=== PATIENT | female | born 1980 | race Caucasian/White ===

== ENCOUNTER 2017-04-14 19:23 | Emergency (ER) | payer MEDICAID ==
[2017-04-14] MEDS ORDERED: ACETAMINOPHEN 325 MG TABLET PO ONE (21:08)
--- NOTE | 2017-04-14 21:09 | ER Document Report ---
HPI - HPI Pain Level: 3 Context: Patient is a 36-year-old female presents emergency department after a fall on Saturday. Patient states that she was walking across her deck when that would give out and she fell through. She states that she. A lot of her weight on her right shoulder. States it was not bothering her that much over the past couple of days when she was at [employer] today and was sliding over to boost when she had pain in her right shoulder. She states that she did not take anything prior to arrival has not taken anything for pain all weekend. She does admit to some pain in the lateral aspect of her right knee but is been able to walk without any difficulty. States it does hurt with certain positions but otherwise denies any significant swelling. - EENT EENT: DENIES: Sore Throat, Ear Pain, Eye problems - NEURO Neurology: DENIES: Headache - CARDIOVASCULAR Cardiovascular: DENIES: Chest pain - RESPIRATORY Respiratory: DENIES: Trouble Breathing, Coughing - GASTROINTESTINAL Gastrointestinal: DENIES: Abdominal Pain, Black / Bloody Stools - URINARY Urinary: DENIES: Dysuria, Urgency, Frequency - MUSCULOSKELETAL Musculoskeletal: REPORTS: Extremity pain - r shoulder, r knee, r ankle Past Medical History - Social History Smoking Status: Never Smoker Family History: Reviewed & Not Pertinent Patient has suicidal ideation: No Patient has homicidal ideation: No Renal/ Medical History: Denies: Hx Peritoneal Dialysis Vertical Provider Document - CONSTITUTIONAL Agree With Documented VS: Yes Notes: PHYSICAL EXAMINATION: GENERAL: Well-appearing, well-nourished and in no acute distress. HEAD: Atraumatic, normocephalic. LUNGS: Breath sounds clear to auscultation bilaterally and equal. No wheezes rales or rhonchi. HEART: Regular rate and rhythm without murmurs. Pulses intact all throughout. Musculoskeletal: Tenderness along the right lateral aspect of the knee without any significant effusion, edema or deformity. Right shoulder with full range of motion and nontender to palpation. Mild tenderness palpation of the right trapezius. Normal range of motion, no pitting or edema. No cyanosis. Hip non tender, stable. NEUROLOGICAL: Cranial nerves grossly intact. Normal speech, normal gait. Normal sensory, motor, and reflex exams. PSYCH: Normal mood, normal affect. SKIN: Warm, No active bleeding - INFECTION CONTROL TRAVEL OUTSIDE OF THE [place] IN LAST 30 DAYS: No - RESPIRATORY O2 Sat by Pulse Oximetry: 98 Course - Re-evaluation Re-evalutation: 04/15/17 2200 Patient is a 36-year-old female is hemodynamically stable, no acute distress.No evidence of a septic joint, gout flare, dislocation, or fracture on exam and imaging. Vitals wnl. At this time, I do not see an indication for labs or further imaging. Will discharge with conservative measures, return precautions, and follow-up recommendations. Patient is declining crutches at this time. - Vital Signs Vital signs: Temp Pulse Resp BP Pulse Ox 98.6 F 79 18 109/76 98 04/14/17 20:07 04/14/17 20:07 04/14/17 20:07 04/14/17 20:07 04/14/17 20:07 - Diagnostic Test Radiology reviewed: Image reviewed, Reports reviewed Discharge - Discharge Clinical Impression: Fall Qualifiers: Encounter type: initial encounter Qualified Code(s): W19.XXXA - Unspecified fall, initial encounter Condition: Good Disposition: HOME, SELF-CARE Instructions: Acetaminophen, Contusion (OM), Use of Btso-Wcr-Vhkevos Ibuprofen (OM), Knee Exercise Program (OM), Exercise Program for the Shoulder ([facility]) Referrals: RAÚL ARSHAD DO [ACTIVE STAFF] - Follow up in 1 week
--- NOTE | 2017-04-14 21:59 | RADIOLOGY REPORT (SQ) ---
EXAM DESCRIPTION: SHOULDER RIGHT 2 OR MORE VIEWS; KNEE RIGHT 4 VIEWS COMPLETED DATE/TIME: 04/14/2017 9:44 pm REASON FOR STUDY: fall COMPARISON: None. FINDINGS: Three views right shoulder: Normal. No bone, joint or soft tissue abnormality. Clear ri ght lung. Four views right knee: No bone, joint or soft tissue abnormality. TECHNICAL DOCUMENTATION: JOB ID: [id number]
[2017-04-14 22:37] VITALS: BP 106/71
== END 2017-04-14 22:33 | disposition home or self-care (01) ==
LOC: ER 19:23
DX: M25.561 Pain in right knee (principal); M25.511 Pain in right shoulder; M25.571 Pain in right ankle and joints of right foot; W13.3XXA Fall through floor, initial encounter
CPT/HCPCS: 99283

== ENCOUNTER 2017-07-09 17:29 | Emergency (ER) | payer MEDICAID ==
[2017-07-09 17:33] VITALS: BP 117/70
--- NOTE | 2017-07-09 17:53 | ER Document Report ---
HPI - HPI Patient complains to provider of: test positive Onset: This morning Pain Level: Denies Context: Patient states that she took a home test that was positive at home. Patient does not feel that the results are accurate and would like to know if she is or not. Patient denies any vaginal bleeding or discharge. Patient denies any urinary symptoms. Patient denies any nausea or vomiting. Patient denies any abdominal pain or back pain. Associated Symptoms: None Exacerbated by: Denies Relieved by: Denies Similar symptoms previously: Yes Recently seen / treated by doctor: No - ROS ROS below otherwise negative: Yes Systems Reviewed and Negative: Yes All other systems reviewed and negative - CONSTITUTIONAL Constitutional: DENIES: Fever, Chills - EENT EENT: DENIES: Sore Throat - CARDIOVASCULAR Cardiovascular: DENIES: Chest pain - RESPIRATORY Respiratory: DENIES: Trouble Breathing, Coughing - GASTROINTESTINAL Gastrointestinal: DENIES: Abdominal Pain, Nausea, Patient vomiting - URINARY Urinary: DENIES: Dysuria - MUSCULOSKELETAL Musculoskeletal: DENIES: Extremity pain, Back Pain - DERM Skin Color: Normal Past Medical History - General Information source: Patient - Social History Smoking Status: Never Smoker Frequency of alcohol use: None Drug Abuse: None 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 IN LAST 30 DAYS: No - HEENT HEENT: Atraumatic, Normocephalic - NECK Neck: Normal Inspection - RESPIRATORY Respiratory: Breath Sounds Normal, No Respiratory Distress - CARDIOVASCULAR Cardiovascular: Regular Rate, Regular Rhythm - GI/ABDOMEN Gastrointestinal: Abdomen Soft, Abdomen Non-Tender, No Organomegaly - BACK Back: Normal Inspection. negative: CVA Tenderness-Right, CVA Tenderness-Left - MUSCULOSKELETAL/EXTREMETIES Musculoskeletal/Extremeties: MAEW - NEURO Level of Consciousness: Awake, Alert, Appropriate Motor/Sensory: No Motor Deficit - DERM Integumentary: Warm, Dry, No Rash Course - Re-evaluation Re-evalutation: 07/09/17 17:52 Explained to patient that the emergency department is not the place for repeat testing to confirm outpatient positive results. - Vital Signs Vital signs: Temp Pulse Resp BP Pulse Ox 98.5 F 68 15 117/70 98 07/09/17 17:32 07/09/17 17:32 07/09/17 17:32 07/09/17 17:32 07/09/17 17:32 - Laboratory Laboratory results interpreted by me: 07/09/17 18:32 Labs- Entire Visit 07/09/17 17:52 Serum HCG, Qual POSITIVE H Discharge - Discharge Clinical Impression: test positive Condition: Stable Disposition: HOME, SELF-CARE Instructions: ([facility]) Additional Instructions: Return immediately for any new or worsening symptoms Followup with your primary care provider, call tomorrow to make a followup appointment Follow-up follow-up with an SCHEME TECHNICIAN to establish care [facility] [NO LOCAL MD] - Follow up as needed [facility] [Provider Group] - Follow up as needed
== END 2017-07-09 18:39 | disposition home or self-care (01) ==
LOC: ER 17:29
DX: Z32.01 Encounter for pregnancy test, result positive (principal)
CPT/HCPCS: 36415; 84703; 99284

== ENCOUNTER → 2017-07-17 | Outpatient (CLI) | payer SELFPAY ==
--- NOTE | 2017-07-17 15:40 | RADIOLOGY REPORT (SQ) ---
EXAM DESCRIPTION: U/S [id number] TRNABD 1GES W/ODOP COMPLETED DATE/TIME: 07/17/2017 1:43 pm REASON FOR STUDY: ENCTR FOR SUPERVISION OF OTHER NORMAL , 1ST TRIMESTER (Z34.81) Z34.81 EN COUNTER FOR SUPRVSN OF NORMAL , FIRST TRIM COMPARISON: None. TECHNIQUE: Transvaginal and transabdominal static and realtime grayscale images acquired of the pelv is. Additional selected spectral and color Doppler images recorded. All images stored on PACs. bHCG: Not available. CLINICAL DATES: LIMITATIONS: None. FINDINGS: FETUS: Living intrauterine . ULTRASOUND EGA: 5 weeks 5 days ULTRASOUND MOISÉS: 03/14/2018 CRL: 2.2 mm FHR: 182 beats per minute. SUBCHORIONIC BLEED: No. SIZE OF BLEED: Not applicable. UTERUS: No masses. No anomalies. CERVICAL LENGTH: 3.5 cm. Closed. RIGHT ADNEXA: Normal ovary with normal vascular flow. No adnexal free fluid. No adnexal masses. LEFT ADNEXA: Normal ovary with normal vascular flow. No adnexal free fluid. No adnexal masses. FREE FLUID: None. OTHER: No other significant finding. IMPRESSION: LIVING INTRAUTERINE . EGA 5 weeks 5 days. Trimester of : First - 0 to 13 weeks. TECHNICAL DOCUMENTATION: JOB ID: [id number] [employer]- All Rights Reserved Reading location - IP/workstation name: [email or web address]
== END ==
LOC: RAD 12:21
PROVIDERS: ATTEND Nurse Practitioner Women's Health
DX: Z34.81 Encounter for supervision of other normal pregnancy, first trimester (principal)
CPT/HCPCS: 76801

== ENCOUNTER 2017-07-24 21:47 | Emergency (ER) | payer MEDICAID ==
[2017-07-25 01:33] LABS: APPEARANCE,URINE CLEAR; BILIRUBIN,URINE NEGATIVE (NEGATIVE); COLOR,URINE YELLOW; GLUCOSE, URINE NEGATIVE (NEGATIVE); KETONES,URINE TRACE mg/dL (NEGATIVE); LEUKOCYTE ESTERASE,URINE NEGATIVE (NEGATIVE); NITRITE,URINE NEGATIVE (NEGATIVE); PROTEIN,URINE 30 mg/dL (NEGATIVE); UROBILINOGEN,URINE NEGATIVE mg/dL (<2.0)
[2017-07-25 02:07] LABS: HEMOGLOBIN 12.4 g/dL (12.0-15.5); MEAN CORPUSCULAR HEMOGLOBIN 31.1 pg (27.0-33.4); MEAN CORPUSCULAR HGB CONC 34.5 g/dL (32.0-36.0); MEAN CORPUSCULAR VOLUME 90 fl (80-97); PLATELET COUNT 418 10^3/uL (150-450); WHITE BLOOD COUNT 10.6 10^3/uL (4.0-10.5)
[2017-07-25 02:22] LABS: ANION GAP 14 (5-19); BLOOD UREA NITROGEN 7 mg/dL (7-20); CALCIUM 9.6 mg/dL (8.4-10.2); CARBON DIOXIDE 23 mmol/L (22-30); CHLORIDE 106 mmol/L (98-107); GLUCOSE 97 mg/dL (75-110); POTASSIUM 4.1 mmol/L (3.6-5.0); SODIUM 143.2 mmol/L (137-145)
--- NOTE | 2017-07-25 03:03 | RADIOLOGY REPORT (SQ) ---
EXAM DESCRIPTION: Complete first trimester obstetrical ultrasound. CLINICAL HISTORY: 37 years Female, bleeding +preg LMP 06/07/2017 COMPARISON: None. TECHNIQUE: Complete first trimester obstetrical ultrasound with transvaginal imaging. Limited color and spectral Doppler imaging ovaries. FINDINGS: The cervix measures 3.2 cm and is closed. Multiple nabothian cysts. The uterus measures 10.6 x 6.1 x 6.0 cm. Within the endometrial canal there is a single gestational sac. pole identified measuring 0.86 cm compatible with an estimated gestational age of 6 weeks, 6 days. heart rate of 136 beats for minute. Yolk sac identified and within normal limits. No free pelvic fluid. The left ovary measures 2.5 x 3.2 x 2.9 cm. The right ovary is not identified. Limited color and spectral Doppler images demonstrate flow within the left ovary. IMPRESSION: Single live intrauterine with estimated gestational age of 6 weeks, 6 days. heart rate of 136 bpm. Continued obstetrical follow-up recommended.
--- NOTE | 2017-07-25 03:19 | ER Document Report ---
ED General - General Chief Complaint: Urinary Problem Stated Complaint: BLOOD IN URINE Time Seen by Provider: 07/25/17 01:14 TRAVEL OUTSIDE OF THE U.S. IN LAST 30 DAYS: No - HPI Patient complains to provider of: Hematuria abdominal pain Notes: Patient coming in stating she is having blood in urine also having diffuse abdominal pain patient states that she is currently approximately 5 weeks she is a . Patient denies any complications or previous pregnancies. Patient denies any abdominal trauma. Resting company upon my evaluation states nausea no vomiting no diarrhea. Patient denies vaginal bleeding - Related Data Allergies/Adverse Reactions: No Known Allergies Allergy (Unverified 04/14/17 19:27) Past Medical History - Social History Smoking Status: Unknown if Ever Smoked Family History: Reviewed & Not Pertinent Patient has suicidal ideation: No Patient has homicidal ideation: No Renal/ Medical History: Denies: Hx Peritoneal Dialysis Review of Systems - Review of Systems Constitutional: No symptoms reported EENT: No symptoms reported Cardiovascular: No symptoms reported Respiratory: No symptoms reported Gastrointestinal: Abdominal pain Genitourinary: Hematuria Female Genitourinary: No symptoms reported Musculoskeletal: No symptoms reported Skin: No symptoms reported Hematologic/Lymphatic: No symptoms reported Neurological/Psychological: No symptoms reported -: Yes All other systems reviewed and negative Physical Exam - Vital signs Vitals: Temp Pulse Resp BP Pulse Ox 98 F 93 18 117/77 98 07/24/17 21:54 07/24/17 21:54 07/24/17 21:54 07/24/17 21:54 07/24/17 21:54 Interpretation: Normal - General General appearance: Appears well, Alert - HEENT Head: Normocephalic, Atraumatic Eyes: Normal Pupils: PERRL - Respiratory Respiratory status: No respiratory distress Chest status: Nontender Breath sounds: Normal Chest palpation: Normal - Cardiovascular Rhythm: Regular Heart sounds: Normal auscultation Murmur: No - Abdominal Inspection: Normal Distension: No distension Bowel sounds: Normal Tenderness: Nontender Organomegaly: No organomegaly - Back Back: Normal, Nontender - Extremities General upper extremity: Normal inspection, Nontender, Normal color, Normal ROM , Normal temperature General lower extremity: Normal inspection, Nontender, Normal color, Normal ROM , Normal temperature, Normal weight bearing. No: Chris's sign - Neurological Neuro grossly intact: Yes Cognition: Normal Orientation: AAOx4 Sammi Coma Scale Eye Opening: Spontaneous Sammi Coma Scale Verbal: Oriented [place] Coma Scale Motor: Obeys Commands Sammi Coma Scale Total: 15 Speech: Normal Motor strength normal: LUE, RUE, LLE, RLE Sensory: Normal - Psychological Associated symptoms: Normal affect, Normal mood - Skin Skin Temperature: Warm Skin Moisture: Dry Skin Color: Normal Course - Re-evaluation Re-evalutation: 07/25/17 03:19 The patient presents with abdominal pain without signs of peritonitis or other life-threatening or serious etiology. The patient appears stable for discharge and has been instructed to return immediately if the symptoms worsen in any way , or in 8-12hr if not improved for re-evaluation. The patient has been instructed to return if the symptoms worsen or change in any way. Patient does not look to be a candidate for RhoGam concerned that more likely patient probably is having a little bit of vaginal spotting however patient is very adamant refuses pelvic examination this time ultrasound does not show any significant pathology will discharge patient home follow-up with [employer] or health department. - Vital Signs Vital signs: Temp Pulse Resp BP Pulse Ox 98 F 93 18 117/77 98 07/24/17 21:54 07/24/17 21:54 07/24/17 21:54 07/24/17 21:54 07/24/17 21:54 - Laboratory Result Diagrams: 07/25/17 01:57 07/25/17 01:57 Laboratory results interpreted by me: 07/25/17 07/25/17 07/25/17 01:15 01:57 01:57 WBC 10.6 H Beta HCG, Quant 51491.00 H Urine Protein 30 H Urine Ketones TRACE H Urine Blood MODERATE H Urine HCG, Qual POSITIVE H Discharge - Discharge Clinical Impression: Abdominal pain during Qualifiers: Trimester: first trimester Qualified Code(s): O26.891 - Other specified related conditions, first trimester; R10.9 - Unspecified abdominal pain; R10.9 - Unspecified abdominal pain Hematuria Qualifiers: Hematuria type: unspecified type Qualified Code(s): R31.9 - Hematuria, unspecified Condition: Good Instructions: Pelvic Pain in ([facility]), ([facility]), Hematuria ([facility]) , Bleeding During Early ([facility]) Additional Instructions: Your ultrasound today does not reveal any critical pathology. I would recommend following back up with the health department for repeat blood testing in approximately 40-72 hours. For nausea and vomiting during I recomment: Start with 10-12.5 mg of pyridoxine (vitamin B6) three times a day for 2 days. If not fully effective, Increase to 12.5 mg of pyridoxine four times a day for 2 days. If not fully effective, Increase to 25 mg of pyridoxine three times a day for 2 days. If not fully effective, Continue 25 mg pyridoxine 3 times a day, and add 12.5 mg of doxylamine before bedtime each day for 2 days. If not fully effective, Continue 25 mg pyridoxine 3 times a day, and take 12.5 mg of doxylamine twice a day. If not fully effective, Continue 25 mg pyridoxine 3 times a day, and take 12.5 mg of doxylamine three times a day. If not fully effective, Continue 25 mg pyridoxine 3 times a day, and 12.5 mg of doxylamine 3 times a day , while adding Emetrol, one to two tablespoons (15-30 cc) taken once or twice a day as needed. (Emetrol is an buwn-wbu-tstjwhl mixture of sugar syrups and phosphoric acid [phosphorylated carbohydrate solution]) that acts by soothing the actual wall of the gastrointestinal tract). If not fully effective, Consult with your doctor. Prescriptions: Metoclopramide HCl [Reglan] 5 mg PO Q6 #30 tablet Referrals: RAFAEL VILLASEÑOR NP [Primary Care Provider] - Follow up as needed
[2017-07-25 03:37] VITALS: BP 97/63
== END 2017-07-25 03:38 | disposition home or self-care (01) ==
LOC: ER 21:47
DX: O26.891 Other specified pregnancy related conditions, first trimester (principal); R10.9 Unspecified abdominal pain; R31.9 Hematuria, unspecified; Z3A.01 Less than 8 weeks gestation of pregnancy
CPT/HCPCS: 36415; 76817; 80048; 81001; 81025; 84702; 85027; 86900; 86901; 93976; 99284

== ENCOUNTER 2018-03-04 15:22 | Outpatient (CLI) | payer MEDICAID ==
--- NOTE | 2018-03-04 16:09 | Non Stress Test Report ---
Non Stress Test Datetime Report Generated by CPN: 03/04/2018 16:09 DEMOGRAPHIC EGA NST: 90.5 INDICATION Indication for Study: Decreased Movement VITAL SIGNS Temperature - NST: 98.4 Pulse - NST: 93 RESP - NST: 16 NBPSYS NST: 113 NBPDIA NST: 74 MONITORING Monitor Explained: Monitor Explained; Test Explained; Patient Verbalized Understanding Time on Monitor: 03/04/2018 15:34 Time off Monitor: 03/04/2018 15:58 NST Duration: 24 NST INTERVENTIONS NST Interventions: None Physician Notified NST: Monique Cook BABY A: [id number] BABY A Movement : Present Contraction Frequency : 0 FHR Baseline : 140 Accelerations : 15X15 Decelerations : None Variability : Moderate 6-25bpm Variability : Moderate 6-25bpm NST Review: Meets Criteria for Reactive NST NST Review and Verified By : Lily Boykin RN NST Results: Reactive NST REPORT Report Trigger: Send Report
== END 2018-03-04 16:08 | disposition home or self-care (01) ==
LOC: LC 15:22
PROVIDERS: ATTEND Obstetrics & Gynecology
PROC: 4A1HXCZ Monitoring of Products of Conception, Cardiac Rate, External Approach (ICD-10-PCS; principal; 2018-03-04)
DX: O36.8130 Decreased fetal movements, third trimester, not applicable or unspecified (principal); Z3A.39 39 weeks gestation of pregnancy
CPT/HCPCS: 59025

== ENCOUNTER 2018-03-07 12:59 | Inpatient (IN) | payer MEDICAID ==
[2018-03-07] MEDS: RINGERS SOLUTION,LACTATED 1,000 ML IV PRN ×2 (13:15→17:40)
[2018-03-07] MEDS ORDERED: DINOPROSTONE 10 MG VAGINAL INSERT.SR PV PRN (13:21)
[2018-03-07] MEDS ORDERED: OXYTOCIN/NORMAL SALINE 20 UNIT/1,000 ML RTUINJ IV PRN ×2 (13:21→22:22)
[2018-03-07] MEDS ORDERED: RINGERS SOLUTION,LACTATED 300 ML IV ONE (13:21)
[2018-03-07 13:52] LABS: APPEARANCE,URINE SLIGHTLY-CLOUDY; BILIRUBIN,URINE NEGATIVE (NEGATIVE); COLOR,URINE YELLOW; GLUCOSE, URINE NEGATIVE (NEGATIVE); KETONES,URINE TRACE mg/dL (NEGATIVE); LEUKOCYTE ESTERASE,URINE LARGE (NEGATIVE); NITRITE,URINE NEGATIVE (NEGATIVE); PROTEIN,URINE 30 mg/dL (NEGATIVE); URINE SPECIFIC GRAVITY 1.018; UROBILINOGEN,URINE NEGATIVE mg/dL (<2.0)
[2018-03-07] MEDS ORDERED: OXYTOCIN/NORMAL SALINE 20 UNIT/1,000 ML RTUINJ ONE (14:06)
[2018-03-07] MEDS ORDERED: LIDOCAINE 1% INJ-PF (10 MG/ML) 30 ML SDV ONE (14:06)
[2018-03-07] MEDS ORDERED: MISOPROSTOL 0.2 MG TABLET ONE (14:06)
[2018-03-07 14:12] LABS: URINE AMPHETAMINES SCREEN NEGATIVE; URINE BARBITURATES SCREEN NEGATIVE; URINE BENZODIAZEPINES SCREEN NEGATIVE; URINE COCAINE SCREEN NEGATIVE; URINE MARIJUANA (THC) SCREEN NEGATIVE; URINE METHADONE SCREEN NEGATIVE; URINE PHENCYCLIDINE SCREEN NEGATIVE
[2018-03-07 15:05] LABS: ABSOLUTE LYMPHOCYTES (AUTO) 2.1 10^3/uL (0.5-4.7); ABSOLUTE MONOCYTES (AUTO) 0.6 10^3/uL (0.1-1.4); ABSOLUTE NEUT (AUTO) 6.8 10^3/uL (1.7-8.2); BASOPHILS % (AUTO) 0.3 % (0-2); EOSINOPHILS % (AUTO) 0.4 % (0-6); HEMATOCRIT 29.8 % (36.0-47.0); HEMOGLOBIN 10.3 g/dL (12.0-15.5); LYMPHOCYTES % (AUTO) 21.8 % (13-45); MEAN CORPUSCULAR HEMOGLOBIN 30.5 pg (27.0-33.4); MEAN CORPUSCULAR HGB CONC 34.4 g/dL (32.0-36.0); MEAN CORPUSCULAR VOLUME 89 fl (80-97); MONOCYTES % (AUTO) 6.7 % (3-13); PLATELET COUNT 371 10^3/uL (150-450); RED BLOOD COUNT 3.37 10^6/uL (3.72-5.28); RED CELL DISTRIBUTION WIDTH 15.7 % (11.5-14.0); SEGMENTED NEUTROPHILS % (AUTO) 70.8 % (42-78); TOTAL CELLS COUNTED % (AUTO) 100 %; WHITE BLOOD COUNT 9.6 10^3/uL (4.0-10.5)
--- NOTE | 2018-03-07 15:32 | Admission Physical ---
Datetime Report Generated by CPN: 03/07/2018 15:32 CURRENT ADMISSION Chief Complaint: Scheduled Induction of Labor Indication for Induction: Other Indication for Induction- Other: gestational diabetes at 39w Admit Impression : No Active Labor Admit Plan: Admit to Unit; Initiate Labor Induction Protocol ALLERGIES Medication Allergies: No Medication Allergies: No Known Allergies (03/04/2018) Latex: No Latex Allergies OBSTETRICAL HISTORY EDC: 03/14/2018 00:00 : 4 Para: 3 Term: 3 : 0 SAB: 0 IAB: 0 Ectopic: 0 Livin Cesareans: 0 VBACs: 0 Multiple Births: 0 Gestational Diabetes: Yes Rh Sensitization: No Incompetent Cervix: No ANIVAL: No Infertility: No ART Treatment: No Uterine Anomaly: No IUGR: No Hx Previous C/S: No Macrosomia: Yes Hx Loss/Stillborn: No PIH: No Hx : Yes Placenta Previa/Abruption: No Depression/PP Depression: No PTL/PROM: No Post Hemorrhage: No Current Procedures: NST Obstetrical History Comments: G1- 2003 at 40 weeks, 9lb male G2- 2004 at 39 weeks, 6lbs 8oz female, baby at 3.5 months from SIDS G3- 2006 at 40 weeks, 8lbs 9oz female G4- current SEE RECORDS Alcohol: No Marijuana : No Cocaine: No Other Illicit Drugs: No Cigarettes: Current Everyday Smoker. 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 Surgery: No Heart Disease: No Hosp/Surgery: Yes Autoimmune Disorder: No Anesthetic Complications: No Kidney Disease: No Abnormal Pap Smear: No Neuro/Epilepsy: No Psychiatric Disorders: No Other Medical Diseases: No Hepatitis/Liver Disease: No Significant Family History: No Varicosities/Phlebitis: No Trauma/Violence : No Thyroid Dysfunction: No INFECTIOUS HISTORY Gonorrhea: No Genital Herpes: No Chlamydia: No Syphilis: No HIV/AIDS Exposure: No HPV: No PHYSICAL EXAM General: Normal HEENT: Normal Neurologic: Normal Thyroid: Deferred Heart: Normal Lungs: Normal Breast: Deferred Back: Normal Abdomen: Normal Genitourinary Exam: Normal Extremities: Normal DTRs: Deferred Pelvic Type: Adequate Physical Exam Comments: proven to 9lb Vital Signs: Reviewed; Within Normal Limits VAGINAL EXAM Dilatation: 3 Effacement: 50 Station: -3 MEMBRANES Pooling: Negative FETUS A EGA: 39.0 Monitoring: External US FHR- Baseline: 140 Variability: Moderate 6-25bpm Accelerations: 10X10 Decelerations: None FHR Category: Category I Estimated Weight (gm): 3200 Presentation: Vertex Admit Comment: at 39w admitted for IOL for GDM A1. adan balloon placed easily and tolerated well. Pitocin infusing at 4mu/min. P: continue pitocin, anticipate PLANS FOR LABOR AND DELIVERY Labor and Delivery: None Pain Management: Natural Feeding Preference: Breast Benefit of Breast Feed Discussed: Yes Circumcision: N/A INFORMED CONSENT Assignment: Rachelle Mendoza MD Signature: with User ID: [email or web address] : with User ID: [email or web address]
[2018-03-07] MEDS ORDERED: NALBUPHINE HCL INJ 10 MG/1 ML AMPULE ONE (19:18)
[2018-03-07] MEDS ORDERED: IBUPROFEN 800 MG TABLET ONE (22:21)
[2018-03-07] MEDS ORDERED: DIBUCAINE 1% OINTMENT 28 GM TP PRN (22:22)
[2018-03-07] MEDS ORDERED: MEASLES,MUMPS&RUBELLA VACC/PF 0.5 ML VIAL SUBCUT PRN (22:22)
[2018-03-07] MEDS ORDERED: BENZOCAINE/MENTHOL AEROSOL SPRAY 56 ML TOP PRN (22:22)
[2018-03-07] MEDS ORDERED: DIPH/PERTUSS(ACELL)/TETANUS VAC/PF 0.5 ML SYR (>=10YO) IM PRN (22:22)
[2018-03-07] MEDS ORDERED: ACETAMINOPHEN WITH CODEINE #3 TABLET PO PRN ×2 (22:22)
[2018-03-07] MEDS ORDERED: ZOLPIDEM TARTRATE 5 MG TABLET PO PRN (22:22)
[2018-03-07] MEDS ORDERED: IBUPROFEN 800 MG TABLET PO ONE (22:40)
--- NOTE | 2018-03-07 22:42 | Warning Signs in Babies ---
VOD Warning Signs Datetime Report Generated by [email or web address]: 03/07/2018 22:42 VOD#608 -Warning Signs in Babies: Viewed with Parent(s)/Family (03/07/2018 22:41:Erin Mariee RN)
[2018-03-07] MEDS ORDERED: BENZOCAINE/MENTHOL AEROSOL SPRAY 56 ML ONE (23:19)
[2018-03-07] MEDS ORDERED: ACETAMINOPHEN WITH CODEINE #3 TABLET ONE (23:34)
--- NOTE | 2018-03-08 04:29 | Delivery Summary ---
Del Sum A-C Datetime Report Generated by CPN: 03/08/2018 04:28 DELIVERY PERSONNEL DELIVERY PERSONNEL: [id number] Delivery Doctor:: Rachelle Mendoza MD Labor and Delivery Nurse:: Erin Mariee RNhands and dial inspector Nurse:: Pattie Albrecht RN Metal Rolling Mill Operator/INFANT TODDLER LEAD TEACHER: Maranda Blackburn, BALLET TEACHER MATERNAL INFORMATION Delivery Anesthesia: None Medications After Delivery: Pitocin Drip 20 Units/1000ml NSS; Cytotec 1000mcg Per Rectum/Vagina Estimated Blood Loss (ml): 200 ml Maternal Complications: None Provider Comments: NSV of a viable female at 2209 with an OA with body cord x 1 presentation; APGARS 8, 9; no lacs LABOR SUMMARY EDC: 03/14/2018 00:00 No. Babies in Womb: 1 Attempted: No Labor Anesthesia: None LABOR INFORMATION Reason for Induction: Maternal Diabetes Onset of Labor: 03/07/2018 16:55 Complete Dilatation: 03/07/2018 22:06 Oxytocin: Induction Group B Beta Strep: Negative Antibiotics # of Doses: 0 Antibiotics Time of Last Dose: N/A Steroids Given: None Reason Steroids Not Administered: Not Applicable MEMBRANES Membranes Rupture Method: Artificial Rupture of Membranes: 03/07/2018 16:55 Length of Rupture (hr): 5.23 Amniotic Fluid Color: Clear Amniotic Fluid Amount: Moderate Amniotic Fluid Odor: Normal STAGES OF LABOR Stage 1 hr: 5 Stage 1 min: 11 Stage 2 hr: 0 Stage 2 min: 3 Stage 3 hr: 0 Stage 3 min: 4 Total Time in Labor hr: 5 Total Time in Labor min: 18 VAGINAL DELIVERY Episiotomy: None Laceration #1: None Laceration Extension #1: N/A Laceration Repair: Not Applicable Sponge Count Correct: Yes Sharps Count Correct: Yes CSECTION DELIVERY Primary Indication: N/A Secondary Indication: N/A CSection Incidence: N/A Labor: N/A Elective: N/A CSection Incision: N/A BABY A INFORMATION Infant Delivery Date/Time: 03/07/2018 22:09 Method of Delivery: Vaginal Born in Route : No : N/A Forceps: N/A Vacuum Extraction: N/A Shoulder Dystocia : No PRESENTATION/POSITION BABY A Presentation: Cephalic Cephalic Presentation: Vertex Breech Presentation: N/A PLACENTA INFORMATION BABY A Placenta Delivery Time : 03/07/2018 22:13 Placenta Method of Delivery: Spontaneous Placenta Status: Delivered SCORES BABY A Heart Rate 1 min: >100 bpm Resp Effort 1 min: Good Cry Reflex Irritability 1 min: Cough or Sneeze or Pulls Away Muscle Tone 1 min: Active Motion Color 1 min: Blue/Pale Resuscitation Effort 1 min: Tactile Stimulation SCORE 1 MIN: 8 Heart Rate 5 min: >100 bpm Resp Effort 5 min: Good Cry Reflex Irritability 5 min: Cough or Sneeze or Pulls Away Muscle Tone 5 min: Active Motion Color 5 min: Body Paragon, Extremities Blue SCORE 5 MIN: 9 INFANT INFORMATION BABY A Gestational Age at Delivery: 39.0 Gestational Status: Full Term- 39- 40.6 Weeks Outcome : Liveborn Condition : Stable Sex: Female IDENTIFICATION BABY A Infant Verification Date/Time: 03/07/2018 22:09 ID Band Number: [id number] Mother's Name Verified: Yes RN Verifying Infant: Lily Mariee RN, B. Ring RN WEIGHT/LENGTH BABY A Infant Birthweight (gm): 3668 Weight (lb): 8 Weight (oz): 1 Length (in): 19.50 Length (cm): 49.53 CORD INFORMATION BABY A No. Cord Vessels: 3 Nuchal Cord : Loose body cord x 1 Infant Suction: Mouth; Nose ASSESSMENT BABY A Physical Findings at Delivery: Within Normal Limits Physical Findings- Other: See full nursery RN Skin to Skin: Yes Care By: Adalberto Albrecht RN Transferred To: Remains with Mother BABY B INFORMATION : N/A SIGNATURES Signature: with User ID: [email or web address] : I was personally available for consultation and serving as supervising physician for the MLP.
[2018-03-08 07:32] LABS: HEMATOCRIT 26.2 % (36.0-47.0); HEMOGLOBIN 8.9 g/dL (12.0-15.5); MEAN CORPUSCULAR HEMOGLOBIN 30.5 pg (27.0-33.4); MEAN CORPUSCULAR HGB CONC 33.9 g/dL (32.0-36.0); MEAN CORPUSCULAR VOLUME 90 fl (80-97); PLATELET COUNT 350 10^3/uL (150-450); RED BLOOD COUNT 2.91 10^6/uL (3.72-5.28); RED CELL DISTRIBUTION WIDTH 15.7 % (11.5-14.0); WHITE BLOOD COUNT 18.9 10^3/uL (4.0-10.5)
[2018-03-08] MEDS ORDERED: SENNOSIDES/DOCUSATE 8.6-50 MG 1 EACH TABLET ONE (10:06)
[2018-03-08] MEDS ORDERED: IBUPROFEN 800 MG TABLET ONE (10:07)
[2018-03-08] MEDS ORDERED: FERROUS SULFATE 325 MG TABLET PO ONE (10:07)
[2018-03-08] MEDS ORDERED: DOCUSATE SODIUM 100 MG CAPSULE ONE (10:07)
[2018-03-08] MEDS: SENNOSIDES/DOCUSATE 8.6-50 MG 1 EACH TABLET PO SCH (10:09)
[2018-03-08] MEDS: DOCUSATE SODIUM 100 MG CAPSULE PO SCH ×2 (10:09→18:09)
[2018-03-08] MEDS: IBUPROFEN 800 MG TABLET PO SCH ×3 (10:09→21:34)
[2018-03-08] MEDS: FERROUS SULFATE 325 MG TABLET PO SCH ×2 (10:09→18:11)
--- NOTE | 2018-03-08 10:35 | PDOC PROGRESS REPORT ---
Subjective-OB Progress Note for:: 03/08/18 Subjective: reports pain controlled with current meds, bleeding slowing, denies needs Physical Exam (OB) Vital Signs: Intake & Output 03/07/18 03/08/18 03/09/18 06:59 06:59 06:59 Intake Total 552 Balance 552 Weight 89.9 kg - Abdomen Fundal Description: Firm, Midline > 4/u*- Describe: U+2 - Abdominal Inspection: Normal Distension: No distension Tenderness: Nontender - Extremities Lower extremities: Chris's sign - neg Calf: Normal, Nontender Objective-Diagnostic Laboratory: 03/08/18 06:01 03/07/18 03/07/18 03/07/18 13:05 14:31 14:31 WBC 9.6 RBC 3.37 L Hgb 10.3 L Hct 29.8 L MCV 89 MCH 30.5 MCHC 34.4 RDW 15.7 H Plt Count 371 Seg Neutrophils % 70.8 Lymphocytes % 21.8 Monocytes % 6.7 Eosinophils % 0.4 Basophils % 0.3 Absolute Neutrophils 6.8 Absolute Lymphocytes 2.1 Absolute Monocytes 0.6 Absolute Eosinophils 0.0 Absolute Basophils 0.0 Urine Color YELLOW Urine Appearance SLIGHTLY-CLOUDY Urine pH 6.0 Ur Specific [place] 1.018 Urine Protein 30 H Urine Glucose (UA) NEGATIVE Urine Ketones TRACE H Urine Blood NEGATIVE Urine Nitrite NEGATIVE Ur Leukocyte Esterase LARGE H Blood Type A POSITIVE Antibody Screen NEGATIVE 03/08/18 06:01 WBC 18.9 H RBC 2.91 L Hgb 8.9 L Hct 26.2 L MCV 90 MCH 30.5 MCHC 33.9 RDW 15.7 H Plt Count 350 Seg Neutrophils % Lymphocytes % Monocytes % Eosinophils % Basophils % Absolute Neutrophils Absolute Lymphocytes Absolute Monocytes Absolute Eosinophils Absolute Basophils Urine Color Urine Appearance Urine pH Ur Specific [place] Urine Protein Urine Glucose (UA) Urine Ketones Urine Blood Urine Nitrite Ur Leukocyte Esterase Blood Type Antibody Screen Assessment and Plan(PN) - Assessment and Plan (1) Normal vaginal delivery Is this a current diagnosis for this admission?: Yes (2) Advanced maternal age (AMA) in Is this a current diagnosis for this admission?: Yes (3) Family history of SIDS (sudden infant syndrome) Is this a current diagnosis for this admission?: Yes (4) Obesity affecting Is this a current diagnosis for this admission?: Yes (5) Gestational diabetes Is this a current diagnosis for this admission?: Yes - Time Spent with Patient Time with patient: Less than 15 minutes Medications reviewed and adjusted accordingly: Yes - Disposition Anticipated Discharge: Home Within: within 24 hours
[2018-03-08] MEDS: PRENATAL VITAMIN W DHA CAPSULE PO SCH (13:45)
[2018-03-09] MEDS: IBUPROFEN 800 MG TABLET PO SCH ×2 (05:07→13:19)
[2018-03-09 08:21] VITALS: BP 102/54
--- NOTE | 2018-03-09 08:56 | PDOC DISCHARGE SUMMARY ---
Final Diagnosis Discharge Date: 03/09/18 - Final Diagnosis (1) Normal vaginal delivery Is this a current diagnosis for this admission?: Yes (2) Advanced maternal age (AMA) in Is this a current diagnosis for this admission?: Yes (3) Family history of SIDS (sudden infant syndrome) Is this a current diagnosis for this admission?: Yes (4) Obesity affecting Is this a current diagnosis for this admission?: Yes (5) Gestational diabetes Is this a current diagnosis for this admission?: Yes Discharge Data - Discharge Medication Home Medications: Iron 65 mg PO DAILY 03/07/18 Ferrous Sulfate [Feosol 325 mg Tablet] 325 mg PO BID tablet 03/09/18 Ibuprofen [Motrin 800 mg Tablet] 800 mg PO Q8HP PRN tablet 03/09/18 Reason(s) for Admission: Induction of Labor Procedures: NST Intrapartum Procedure(s): Spontaneous Vaginal Delivery - Diagnosis Test Laboratory: Temp Pulse Resp BP Pulse Ox 97.9 F 68 16 102/54 L 98 03/09/18 07:29 03/09/18 07:29 03/09/18 07:29 03/09/18 07:29 03/09/18 07:29 03/07/18 03/07/18 03/08/18 13:05 14:31 06:01 RBC 3.37 L 2.91 L Hgb 10.3 L 8.9 L Hct 29.8 L 26.2 L Urine Opiates Screen NEGATIVE - Discharge information/Instructions Discharge Activity: Balance Activity w/Rest, Pelvic Rest Discharge Diet: Regular Disposition: HOME, SELF-CARE Follow up with: [facility] in: 4, Weeks
[2018-03-09] MEDS: FERROUS SULFATE 325 MG TABLET PO SCH (10:03)
[2018-03-09] MEDS: DOCUSATE SODIUM 100 MG CAPSULE PO SCH (10:03)
[2018-03-09] MEDS: SENNOSIDES/DOCUSATE 8.6-50 MG 1 EACH TABLET PO SCH (10:03)
[2018-03-09] MEDS: PRENATAL VITAMIN W DHA CAPSULE PO SCH (10:03)
== END 2018-03-09 15:00 | disposition home or self-care (01) | DRG 807 ==
LOC: LC 12:59 → LR 13:11 → 2S 03-08 10:15
PROVIDERS: ADMIT Obstetrics & Gynecology; ATTEND Obstetrics & Gynecology
PROC: 10E0XZZ Delivery of Products of Conception, External Approach (ICD-10-PCS; principal; 2018-03-07)
PROC: 4A1HXCZ Monitoring of Products of Conception, Cardiac Rate, External Approach (ICD-10-PCS; 2018-03-07)
DX: O24.429 Gestational diabetes mellitus in childbirth, unspecified control (principal); Z37.0 Single live birth; O69.2XX0 Labor and delivery complicated by other cord entanglement, with compression, not applicable or unspecified; Z3A.39 39 weeks gestation of pregnancy; O99.214 Obesity complicating childbirth; E66.9 Obesity, unspecified; Z84.82 Family history of sudden infant death syndrome
CPT/HCPCS: 36415; 80307; 81005; 82962; 85025; 85027; 86592; 86850; 86900; 86901; C1758; J2300; J2590; J3490

== ENCOUNTER 2018-03-13 17:41 | Emergency (ER) | payer MEDICAID ==
--- NOTE | 2018-03-13 19:29 | ER Document Report ---
ED Medical Screen (RME) - General Chief Complaint: Vaginal Bleeding Stated Complaint: BACK PAIN, VAGINAL BLEEDING Time Seen by Provider: 03/13/18 19:10 Mode of Arrival: Ambulatory Information source: Patient Notes: This is a 37-year-old female 4, status post delivery 6 days ago presents to the emergency room with worsening vaginal bleeding over the last 6 days. Patient did deliver here and did call the OB clinic and was referred to the emergency room. TRAVEL OUTSIDE OF THE [place] IN LAST 30 DAYS: No - Related Data Allergies/Adverse Reactions: No Known Allergies Allergy (Verified 03/13/18 17:43) Past Medical History - Social History Frequency of alcohol use: None Drug Abuse: None Renal/ Medical History: Denies: Hx Peritoneal Dialysis Physical Exam - Vital signs Vitals: Temp Pulse Resp BP Pulse Ox 98.5 F 86 18 116/68 98 03/13/18 18:12 03/13/18 18:12 03/13/18 18:12 03/13/18 18:12 03/13/18 18:12 Course - Vital Signs Vital signs: Temp Pulse Resp BP Pulse Ox 98.5 F 86 18 116/68 98 03/13/18 18:12 03/13/18 18:12 03/13/18 18:12 03/13/18 18:12 03/13/18 18:12 Doctor's Discharge - Discharge Referrals: JENNY APONTE DO [Primary Care Provider] - Follow up as needed
[2018-03-13] MEDS ORDERED: RINGERS SOLUTION,LACTATED 1,000 ML IV ONE (19:31)
[2018-03-13 20:23] LABS: ABSOLUTE BASOPHILS # (AUTO) 0.1 10^3/uL (0.0-0.2); ABSOLUTE EOSINOPHILS # (AUTO) 0.1 10^3/uL (0.0-0.6); ABSOLUTE LYMPHOCYTES (AUTO) 2.4 10^3/uL (0.5-4.7); ABSOLUTE MONOCYTES (AUTO) 0.6 10^3/uL (0.1-1.4); ABSOLUTE NEUT (AUTO) 6.3 10^3/uL (1.7-8.2); BASOPHILS % (AUTO) 0.6 % (0-2); EOSINOPHILS % (AUTO) 1.3 % (0-6); HEMATOCRIT 31.1 % (36.0-47.0); HEMOGLOBIN 10.6 g/dL (12.0-15.5); LYMPHOCYTES % (AUTO) 24.9 % (13-45); MEAN CORPUSCULAR HEMOGLOBIN 30.8 pg (27.0-33.4); MEAN CORPUSCULAR VOLUME 91 fl (80-97); MONOCYTES % (AUTO) 6.5 % (3-13); PLATELET COUNT 548 10^3/uL (150-450); RED BLOOD COUNT 3.44 10^6/uL (3.72-5.28); RED CELL DISTRIBUTION WIDTH 15.6 % (11.5-14.0); SEGMENTED NEUTROPHILS % (AUTO) 66.7 % (42-78); TOTAL CELLS COUNTED % (AUTO) 100 %; WHITE BLOOD COUNT 9.5 10^3/uL (4.0-10.5)
--- NOTE | 2018-03-13 20:32 | RADIOLOGY REPORT (SQ) ---
EXAM DESCRIPTION: US PELVIS LIMITED COMPLETED DATE/TME: 03/13/2018 19:30 CLINICAL HISTORY: 37 years, Female, vag delivery, heavy bleeding. Six days . Findings: Uterus measures 17.9 x 7.9 x 12.0 cm. It is anteverted. There is complex tissue visualized at the lower uterine segment and cervical level measuring 7.3 x 4.6 x 6.0 cm. There is no increased vascularity in this region. This likely represents hematoma and blood clots. Maternal ovaries not visualized due to shadowing. No free fluid in the cul-de-sac. IMPRESSION: Complex heterogeneous material within the lower uterine segment and cervix likely representing hemorrhage and may represent retained products of conception.
[2018-03-13 20:40] LABS: ALANINE AMINOTRANSFERASE 45 U/L (9-52); ALBUMIN 3.8 g/dL (3.5-5.0); ALKALINE PHOSPHATASE 123 U/L (38-126); ANION GAP 6 (5-19); ASPARTATE AMINO TRANSFERASE 34 U/L (14-36); BILIRUBIN,DIRECT 0.1 mg/dL (0.0-0.4); BILIRUBIN,TOTAL 0.2 mg/dL (0.2-1.3); BLOOD UREA NITROGEN 12 mg/dL (7-20); CALCIUM 9.5 mg/dL (8.4-10.2); CARBON DIOXIDE 28 mmol/L (22-30); CHLORIDE 105 mmol/L (98-107); GLUCOSE 93 mg/dL (75-110); POTASSIUM 4.6 mmol/L (3.6-5.0); SODIUM 139.2 mmol/L (137-145); TOTAL PROTEIN 6.8 g/dL (6.3-8.2)
--- NOTE | 2018-03-13 22:02 | ER Document Report ---
ED General - General Chief Complaint: Vaginal Bleeding Stated Complaint: BACK PAIN, VAGINAL BLEEDING Time Seen by Provider: 03/13/18 19:10 Mode of Arrival: Ambulatory Notes: 37-year-old female gave vaginal 6 days ago presents to the emergency department with worsening vaginal bleeding over the last 6 days. Patient did deliver here and did call the OB clinic and was referred to the emergency room. She states since the she has been "pale ", weak, and had intermittent dizziness. She is also complaining of shoulder and back pain along with pelvic pain. Every time she uses the restroom she states that she is passing at least 3-4 clots. She denies headaches, lightheadedness, bluish discoloration of her nailbeds, shortness of breath, chest pain, complains of abdominal pain, complains of bleeding. TRAVEL OUTSIDE OF THE [place] IN LAST 30 DAYS: No - Related Data Allergies/Adverse Reactions: No Known Allergies Allergy (Verified 03/13/18 17:43) Past Medical History - General Information source: Patient - Social History Smoking Status: Never Smoker Frequency of alcohol use: None Drug Abuse: None Family History: Reviewed & Not Pertinent Patient has suicidal ideation: No Patient has homicidal ideation: No Renal/ Medical History: Denies: Hx Peritoneal Dialysis Review of Systems - Review of Systems Constitutional: See HPI EENT: No symptoms reported Cardiovascular: See HPI Respiratory: See HPI Gastrointestinal: See HPI Genitourinary: See HPI Female Genitourinary: See HPI Musculoskeletal: See HPI Skin: No symptoms reported Hematologic/Lymphatic: No symptoms reported Neurological/Psychological: No symptoms reported Physical Exam - Vital signs Vitals: Temp Pulse Resp BP Pulse Ox 98.5 F 86 18 116/68 98 03/13/18 18:12 03/13/18 18:12 03/13/18 18:12 03/13/18 18:12 03/13/18 18:12 - Notes Notes: Reviewed vital signs and nursing note as charted by RN. CONSTITUTIONAL: Well-appearing, well-nourished, acting appropriately for age HEAD: Normocephalic, atraumatic, no swelling EYES: PERRL, Conjunctivae clear, no drainage, EOMI, no scleral icterus ENT: External ears without lesions, External auditory canal is patent, airway patent, mucous membranes pink and moist CARD: Regular rate and rhythm, no murmurs, no rubs, no gallops, capillary refill < 2 seconds, symmetric pulses RESP: The lungs are clear to auscultation bilaterally, no wheezing, no rales, no rhonchi. Respiratory rate and effort are normal, normal chest excursion. No respiratory distress, no retractions, no stridor, no nasal flaring, no accessory muscle use. ABD/GI: Normal bowel sounds, non-distended, soft, suprapubic tenderness to palpation, tender to palpation over epigastric area, tender to palpation left lower quadrant no rebound, no guarding, no palpable organomegaly EXT: Normal ROM in all joints, non-tender to palpation, no effusions, no edema SKIN: Normal color for age and race, warm, dry, good turgor, no acute lesions noted NEURO: No facial asymmetry, moves all extremities equally, motor and sensory function intact Course - Re-evaluation Re-evalutation: 03/13/18 21:57 Well-appearing 37-year-old female presents to the emergency department ever a vaginal 6 days ago with increased vaginal bleeding and passing clots every time she uses the bathroom. She is complaining of weakness, being pale, dizzy, and shoulder and back pain. She is also complaining of pelvic pain. A abdominal ultrasound showed concern for possible hematoma versus retained produ cts of conception. Plan is to consult the on-call dean of girls Dr. delgado 03/13/18 22:[address] delgado. She states that course best course of action is to give Cytotec 800 mcg 1 time per rectum and it is okay to discharge the patient home. Patient's hemoglobin is stable and has actually increased from 8.9 on March 07 to 10.6 today. Plan to give Cytotec 800 mcg 1 time per rectum and discharge patient home with follow-up to the OB clinic on Saturday morning per direction of Dr. delgado 03/13/18 22:03 - Vital Signs Vital signs: Temp Pulse Resp BP Pulse Ox 98.5 F 86 18 116/68 98 03/13/18 18:12 03/13/18 18:12 03/13/18 18:12 03/13/18 18:12 03/13/18 18:12 - Laboratory Result Diagrams: 03/13/18 20:03 03/13/18 20:03 Laboratory results interpreted by me: 03/13/18 20:03 RBC 3.44 L Hgb 10.6 L Hct 31.1 L RDW 15.6 H Plt Count 548 H Discharge - Discharge Clinical Impression: bleeding Qualifiers: hemorrhage type: unspecified Qualified Code(s): O72.1 - Other immediate hemorrhage Condition: Stable Disposition: HOME, SELF-CARE Additional Instructions: You were seen in the emergency department this evening for bleeding. After speaking with the on-call dean of girls we have given you a medication called Cytotec that will help to stop the bleeding. She states that it will be okay for you to follow-up on Saturday in the OB clinic. If in the interim your bleeding gets worse, you become lightheaded or dizzy, you get weaker, or you become more pale please immediately return to the emergency department as this could be a sign of excessive blood loss. Referrals: JENNY APONTE, DO [ACTIVE STAFF] - Follow up as needed
[2018-03-13] MEDS ORDERED: MISOPROSTOL 0.2 MG TABLET PR ONE ×2 (22:04→22:15)
[2018-03-13 23:39] VITALS: BP 107/65
== END 2018-03-13 23:08 | disposition home or self-care (01) ==
LOC: ER 17:41
DX: O72.1 Other immediate postpartum hemorrhage (principal)
CPT/HCPCS: 99284; 96360; 36415; 85025; 80053; 76857; J7120

== ENCOUNTER 2018-05-08 09:56 | Day surgery (SDC) | payer MEDICAID ==
[2018-05-05 10:50] LABS: HEMOGLOBIN 10.9 g/dL (12.0-15.5); MEAN CORPUSCULAR HEMOGLOBIN 29.5 pg (27.0-33.4); MEAN CORPUSCULAR HGB CONC 34.1 g/dL (32.0-36.0); MEAN CORPUSCULAR VOLUME 87 fl (80-97); PLATELET COUNT 454 10^3/uL (150-450); RED BLOOD COUNT 3.69 10^6/uL (3.72-5.28); RED CELL DISTRIBUTION WIDTH 15.2 % (11.5-14.0)
[2018-05-05 10:50] LABS: APPEARANCE,URINE CLEAR; BILIRUBIN,URINE NEGATIVE (NEGATIVE); COLOR,URINE YELLOW; GLUCOSE, URINE NEGATIVE (NEGATIVE); KETONES,URINE NEGATIVE (NEGATIVE); LEUKOCYTE ESTERASE,URINE NEGATIVE (NEGATIVE); NITRITE,URINE NEGATIVE (NEGATIVE); PROTEIN,URINE NEGATIVE (NEGATIVE); UROBILINOGEN,URINE NEGATIVE mg/dL (<2.0)
[~2018-05-08 09:56] MED LIST: LACTATED RINGERS 1000 ML IV PRN; LIDOCAINE 0.5% INJ-PF (5 MG/ML) 50 ML SDV SUBCUT PRN
[2018-05-08] MEDS ORDERED: GLYCOPYRROLATE 1 MG/5 ML SYRINGE ONE (12:10)
[2018-05-08] MEDS ORDERED: LIDOCAINE 2% INJ-PF (100 MG/5 ML) SYRINGE ONE (12:10)
[2018-05-08] MEDS ORDERED: LIDOCAINE 2% INJ-PF (20 MG/ML) 2 ML AMPUL ONE (12:10)
[2018-05-08] MEDS ORDERED: DEXAMETHASONE SOD PHOSPHATE INJ 4 MG/1 ML VIAL ONE (12:10)
[2018-05-08] MEDS ORDERED: ROCURONIUM BROMIDE INJ 50 MG/5 ML VIAL IV ONE (12:10)
[2018-05-08] MEDS ORDERED: METOCLOPRAMIDE HCL INJ/PF 10 MG/2 ML SDV ONE (12:10)
[2018-05-08] MEDS ORDERED: PROPOFOL INJ 200 MG/20 ML VIAL IV ONE (12:10)
[2018-05-08] MEDS ORDERED: KETOROLAC TROMETHAMINE 60 MG/2 ML SDV ONE (12:10)
[2018-05-08] MEDS ORDERED: FENTANYL CITRATE INJ/PF 100 MCG/2 ML AMPUL ONE (12:10)
[2018-05-08] MEDS ORDERED: ONDANSETRON HCL INJ/PF 4 MG/2 ML SDV ONE (12:10)
[2018-05-08] MEDS ORDERED: MIDAZOLAM 2 MG/2 ML INJ ONE (12:10)
[2018-05-08] MEDS ORDERED: SUCCINYLCHOLINE CHLORIDE INJ 200 MG/10 ML VIAL ONE (12:10)
[2018-05-08] MEDS ORDERED: ACETAMINOPHEN 1,000 MG/100 ML RTUPB IV ONE (12:11)
[2018-05-08] MEDS ORDERED: MEPERIDINE HCL/PF INJ 25 MG/1 ML DISP.SYRIN IV PRN (12:59)
[2018-05-08] MEDS ORDERED: PROMETHAZINE HCL INJ 25 MG/1 ML VIAL IV PRN ×2 (12:59)
[2018-05-08] MEDS ORDERED: ONDANSETRON HCL INJ/PF 4 MG/2 ML SDV IV PRN (12:59)
[2018-05-08] MEDS ORDERED: MORPHINE SULFATE 10 MG/ML INJ IV PRN (12:59)
[2018-05-08] MEDS ORDERED: DIPHENHYDRAMINE HCL 50 MG/ML VIAL IV PRN (12:59)
[2018-05-08] MEDS ORDERED: FENTANYL CITRATE INJ/PF 100 MCG/2 ML AMPUL IV PRN ×3 (12:59)
[2018-05-08] MEDS ORDERED: SUGAMMADEX SODIUM 200 MG/2 ML SDV IV ONE (13:33)
[2018-05-08] MEDS: FENTANYL CITRATE INJ/PF 100 MCG/2 ML AMPUL ONE ×2 (13:37→13:42)
--- NOTE | 2018-05-08 13:38 | OPERATIVE REPORT E ---
Operative Report NAME: MAYANK CAMARA : 1980 AGE: 37Y DATE OF SURGERY: 05/08/2018 ROOM: PREOPERATIVE DIAGNOSIS: Undesired fertility. POSTOPERATIVE DIAGNOSIS: Undesired fertility. SURGEON: CAREY CASTILLO M.D. ANIMAL HUMANE AGENT SUPERVISOR: Candelaria Benavides Electronic Security Technician Breaker Unit Assembler ANESTHESIA: Dr. Mckeon with general. FINDINGS: Normal uterus, tubes, and ovaries. COMPLICATIONS: None. ESTIMATED BLOOD LOSS: 10 mL. SPECIMENS REMOVED: None. PROCEDURE: Laparoscopic tubal cauterization. PROCEDURE IN DETAIL: The patient was taken to the operating room and prepared and draped in a normal sterile fashion in the dorsal lithotomy position. Under sterile conditions, an in-and-out cath was performed of approximately 250 mL of clear urine. A sterile speculum was placed in the vagina. The cervix was grasped on the anterior lip with a single-toothed tenaculum and prepped with Betadine. A Hulka clamp was then placed through the cervix for uterine manipulation. The tenaculum was removed and the speculum was removed. Gloves were changed and attention was turned to the upper portio of the case. An umbilical skin incision was made to accommodate a 5 mm port. The Veress needle was introduced through this incision and the abdomen was inflated with approximately 2 L of CO2 gas. The Veress needle was removed and the 5 mm trocar was placed without difficulty. Camera was introduced and the above findings were noted. Under direct visualization, a 5 mm port was placed in the left lower quadrant. The patient was placed in Trendelenburg. The bowel was swept away. Kleppinger was introduced into the abdomen beginning with the right fallopian tube. The right fallopian tube was coagulated out with the Kleppinger approximately 3.5 cm until total tubal occlusion was obtained. This was repeated on the left fallopian tube without difficulty. The Kleppinger was removed and the port was removed under direct visualization. The camera was then removed and the abdomen was deflated through the umbilical port. The patient was taken out of Trendelenburg. Both sites were closed with 4-0 Vicryl at the skin. The patient tolerated the procedure well. Sponge, lap, and needle counts were correct x2, and the patient was taken to recovery in stable condition. DICTATING PHYSICIAN: CAREY CASTILLO M.D. [id number] PHY#: [id number] ID: [id number] JOB#: [id number] ACCT: [id number] cc:CAREY CASTILLO M.D. >
[2018-05-08] MEDS ORDERED: MORPHINE SULFATE 10 MG/ML INJ IM PRN (14:11)
[2018-05-08] MEDS ORDERED: OXYCODONE-ACETAMINOPHEN 5-325 MG TABLET ONE (14:23)
[2018-05-08] MEDS ORDERED: IBUPROFEN 800 MG TABLET PO PRN (14:30)
[2018-05-08] MEDS ORDERED: RINGERS SOLUTION,LACTATED 1,000 ML IV PRN (14:30)
[2018-05-08] MEDS ORDERED: OXYCODONE-ACETAMINOPHEN 5-325 MG TABLET PO PRN ×2 (14:30)
[2018-05-08 15:33] VITALS: BP 111/64
== END 2018-05-08 15:25 | disposition home or self-care (01) ==
LOC: OROUT 09:56
PROVIDERS: ATTEND Obstetrics & Gynecology
DX: Z30.2 Encounter for sterilization (principal); D64.9 Anemia, unspecified
CPT/HCPCS: 36415; 85027; 81005; 81025; 58671; J2250; J3490 ×4; J1100; J1885; J3010; J2001; J2765; J0330; J2405; J2704; J0131; 851

== ENCOUNTER 2018-09-17 21:36 | Emergency (ER) | payer MEDICAID ==
[2018-09-17 21:45] VITALS: BP 109/59
--- NOTE | 2018-09-18 01:55 | ER Document Report ---
ED General - General Chief Complaint: Elbow Injury Stated Complaint: ELBOW AND HIP PAIN Time Seen by Provider: 09/18/18 00:09 TRAVEL OUTSIDE OF THE [place] IN LAST 30 DAYS: No - HPI Notes: 38-year-old female to the emergency department with complaints of several weeks of right elbow pain and right hip pain. 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 She states that her hip feels like it is stiff and it catches every time she stands up and gets to walking. She denies any falls. She denies any injury to the hip or to the elbow. She denies any blunt trauma. Denies any edema, erythema, fevers, IV drug abuse. She has not taken anything for the pain. - Related Data Allergies/Adverse Reactions: No Known Allergies Allergy (Verified 05/08/18 10:27) Past Medical History - General Information source: Patient, Relative - Social History Smoking Status: Never Smoker Frequency of alcohol use: None Drug Abuse: None Lives with: Spouse/Significant other Family History: Reviewed & Not Pertinent - Past Medical History Cardiac Medical History: Denies: Hx Coronary Artery Disease, Hx Heart Attack, Hx Hypertension Pulmonary Medical History: Denies: Hx Asthma, Hx Bronchitis, Hx COPD, Hx Pneumonia Neurological Medical History: Denies: Hx Cerebrovascular Accident, Hx Seizures Renal/ Medical History: Denies: Hx Peritoneal Dialysis Musculoskeletal Medical History: Denies Hx Arthritis - Immunizations Hx Diphtheria, Pertussis, Tetanus Vaccination: Yes Review of Systems - Review of Systems Constitutional: No symptoms reported EENT: No symptoms reported Cardiovascular: denies: Chest pain, Dyspnea, Syncope, Dizziness, Lightheaded Respiratory: denies: Cough, Short of breath Gastrointestinal: denies: Abdominal pain, Diarrhea, Nausea, Vomiting Genitourinary: No symptoms reported Musculoskeletal: See HPI, Joint pain Skin: denies: No symptoms reported, Change in color Hematologic/Lymphatic: No symptoms reported Neurological/Psychological: No symptoms reported -: Yes All other systems reviewed and negative Physical Exam - Vital signs Vitals: Temp Pulse Resp BP Pulse Ox 98.3 F 77 16 109/59 L 99 09/17/18 21:44 09/17/18 21:44 09/17/18 21:44 09/17/18 21:44 09/17/18 21:44 Interpretation: Normal - General General appearance: Appears well, Alert - HEENT Head: Normocephalic, Atraumatic Eyes: Normal Pupils: PERRL - Respiratory Respiratory status: No respiratory distress Chest status: Nontender Breath sounds: Normal Chest palpation: Normal - Cardiovascular Rhythm: Regular Heart sounds: Normal auscultation Murmur: No - Abdominal Inspection: Normal Distension: No distension Bowel sounds: Normal Tenderness: Nontender Organomegaly: No organomegaly - Back Back: Normal, Nontender - Extremities Elbow: Tender - There is tenderness to palpation over the lateral aspect of the right elbow. Patient has increased pain with flexion of the elbow with supination and pronation. There is no evidence of joint effusion. There is no joint edema. There is no joint warmth. There is no evidence of superimposed infection. There is no evidence of septic joint. Nontender to palpation over the right shoulder right wrist and right hand. She has 5 out of 5 strength in bilateral handgrip. Her flexion and extension of the right elbow are also intact with 5 out of 5 strength is resistance.. No: Deformity, Dislocation, Ecchymosis, Joint effusion, Laceration Hip: Tender - Mild tenderness to palpation over the right hip joint. There is no leg length discrepancy. Rotation of the leg. She can ambulate on this hip with a mild limp. She has negative straight leg raise. She has full range of motion in the hip against resistance with 5 out of 5 strength in flexion and extension, abduction, adduction.. No: Ecchymosis - Neurological Neuro grossly intact: Yes Cognition: Normal Orientation: AAOx4 Sammi Coma Scale Eye Opening: Spontaneous Sammi Coma Scale Verbal: Oriented [place] Coma Scale Motor: Obeys Commands Sammi Coma Scale Total: 15 Speech: Normal Motor strength normal: LUE, RUE, LLE, RLE Sensory: Normal - Psychological Associated symptoms: Normal affect, Normal mood - Skin Skin Temperature: Warm Skin Moisture: Dry Skin Color: Normal Course - Re-evaluation Re-evalutation: 09/18/18 02:10 Impression: Right lateral epicondylitis of the right elbow, right hip pain. We will send patient home with Medrol Dosepak, muscle relaxant, pain control. We will have her follow-up with orthopedist [facility]. Encouraged for her to rest the elbow and hip. Patient agrees with the plan. Encouraged to return if any fevers, worsening pain, edema, erythema, purulent drainage. Or any other concerning symptoms. - Vital Signs Vital signs: Temp Pulse Resp BP Pulse Ox 98.3 F 77 16 109/59 L 99 09/17/18 21:44 09/17/18 21:44 09/17/18 21:44 09/17/18 21:44 09/17/18 21:44 - Diagnostic Test Radiology reviewed: Image reviewed Radiology results interpreted by me: 09/18/18 02:09 X-ray reading prelim by me of right elbow: No acute fracture, dislocation, or bony abnormality. X-ray reading preliminary by me of right hip: No acute fracture, dislocation or bony abnormality. No evidence of rami fracture. Pelvic ring appears intact. Discharge - Discharge Clinical Impression: Right lateral epicondylitis, Right elbow pain, Right hip pain Disposition: HOME, SELF-CARE Instructions: Tennis Elbow (Lateral Epicondylitis) ([facility]) Additional Instructions: FOLLOW UP WITH THE ORTHOPEDIST LISTED BELOW. RETURN IF WORSE. USE MEDICINES PRESCRIBED. REST THE ELBOW. Prescriptions: Cyclobenzaprine HCl [Flexeril 5 mg Tablet] 1 - 2 tab PO TID PRN #15 tablet PRN Reason: Etodolac 400 mg PO BID #20 tablet Methylprednisolone [Medrol Dosepack (4 mg/Tab) 21 Tab/Dosepak] 4 mg PO ASDIR PRN #21 tab.ds.pk PRN Reason: Forms: Return to Work Referrals: EARLINE IVORY MD [ACTIVE PROVISIONAL STAFF] - Follow up in 1 week (FOR ORTHOPEDIC FOLLOW UP)
--- NOTE | 2018-09-18 02:11 | RADIOLOGY REPORT (SQ) ---
CLINICAL HISTORY: ELBOW PAIN COMPARISON: None. TECHNIQUE: XR ELBOW 1-2 VIEWS 09/18/2018 12:20 AM CDT FINDINGS: There is no fracture. Joint spaces are preserved. Soft tissues are unremarkable. IMPRESSION: No acute osseous findings.
--- NOTE | 2018-09-18 02:12 | RADIOLOGY REPORT (SQ) ---
CLINICAL HISTORY: RIGHT HIP PAIN COMPARISON: None. TECHNIQUE: XR HIP 2 OR MORE VIEWS 09/18/2018 12:21 AM CDT FINDINGS: There is no fracture. Joint spaces are preserved. Soft tissues are unremarkable. IMPRESSION: No acute osseous findings.
== END 2018-09-18 02:01 | disposition home or self-care (01) ==
LOC: ER 21:36
DX: M77.11 Lateral epicondylitis, right elbow (principal); M25.551 Pain in right hip; M25.521 Pain in right elbow
CPT/HCPCS: 99283

== ENCOUNTER 2018-12-16 20:45 | Emergency (ER) | payer MEDICAID ==
[2018-12-16] MEDS ORDERED: NORMAL SALINE 1000 ML 1,000 ML IV ONE (21:04)
[2018-12-16] MEDS ORDERED: METOCLOPRAMIDE HCL INJ/PF 10 MG/2 ML SDV IV ONE (21:16)
[2018-12-16 21:25] LABS: ABSOLUTE EOSINOPHILS # (AUTO) 0.1 10^3/uL (0.0-0.6); ABSOLUTE LYMPHOCYTES (AUTO) 1.6 10^3/uL (0.5-4.7); ABSOLUTE MONOCYTES (AUTO) 0.9 10^3/uL (0.1-1.4); ABSOLUTE NEUT (AUTO) 12.4 10^3/uL (1.7-8.2); BASOPHILS % (AUTO) 0.2 % (0-2); EOSINOPHILS % (AUTO) 0.4 % (0-6); HEMATOCRIT 34.8 % (36.0-47.0); HEMOGLOBIN 11.8 g/dL (12.0-15.5); LYMPHOCYTES % (AUTO) 10.8 % (13-45); MEAN CORPUSCULAR HEMOGLOBIN 29.7 pg (27.0-33.4); MEAN CORPUSCULAR HGB CONC 33.9 g/dL (32.0-36.0); MEAN CORPUSCULAR VOLUME 88 fl (80-97); MONOCYTES % (AUTO) 5.8 % (3-13); PLATELET COUNT 392 10^3/uL (150-450); RED BLOOD COUNT 3.96 10^6/uL (3.72-5.28); RED CELL DISTRIBUTION WIDTH 14.4 % (11.5-14.0); SEGMENTED NEUTROPHILS % (AUTO) 82.8 % (42-78); TOTAL CELLS COUNTED % (AUTO) 100 %
[2018-12-16 21:36] LABS: ALBUMIN 3.1 g/dL (3.5-5.0); ALKALINE PHOSPHATASE 62 U/L (38-126); ANION GAP 7 (5-19); ASPARTATE AMINO TRANSFERASE 12 U/L (14-36); BILIRUBIN,DIRECT 0.1 mg/dL (0.0-0.4); BILIRUBIN,TOTAL 0.2 mg/dL (0.2-1.3); BLOOD UREA NITROGEN 9 mg/dL (7-20); CALCIUM 8.8 mg/dL (8.4-10.2); CARBON DIOXIDE 23 mmol/L (22-30); CHLORIDE 108 mmol/L (98-107); GLUCOSE 104 mg/dL (75-110); POTASSIUM 4.2 mmol/L (3.6-5.0); TOTAL PROTEIN 5.7 g/dL (6.3-8.2)
[2018-12-16 23:17] VITALS: BP 103/59
--- NOTE | 2018-12-17 05:18 | ER Document Report ---
Entered by TISHA MORGAN SCRIBE 12/16/[id number] Acting as scribe for:SAMM PRICE DO ED General - General Stated Complaint: DIZZINESS,NAUSEA Time Seen by Provider: 12/16/18 20:50 Primary Care Provider: BRI CASTRO MD [Primary Care Provider] - Follow up as needed Mode of Arrival: Ambulatory Information source: Patient Notes: Patient is a 38-year-old female that presents to the emergency department today with complaints of dizziness, lightheadedness, and nausea. Patient states that she donated plasma this morning and she has never done that before. Patient states after donating plasma she ate a cheeseburger, McChicken, and one large fruit punch but has had nothing else to drink today. Patient states she was getting out of her car to go into work when her symptoms began. Patient states she has had some nausea but denies any abdominal pain. TRAVEL OUTSIDE OF THE [place] IN LAST 30 DAYS: No - Related Data Allergies/Adverse Reactions: No Known Allergies Allergy (Verified 12/16/18 21:23) Past Medical History - General Information source: Patient - Social History Smoking Status: Unknown if Ever Smoked Cigarette use (# per day): No Chew tobacco use (# tins/day): No Smoking Education Provided: No Frequency of alcohol use: None Drug Abuse: None Lives with: Family Family History: Reviewed & Not Pertinent - Immunizations Hx Diphtheria, Pertussis, Tetanus Vaccination: Yes Review of Systems - Review of Systems Constitutional: No symptoms reported EENT: No symptoms reported Cardiovascular: See HPI, Dizziness, Lightheaded Respiratory: No symptoms reported Gastrointestinal: See HPI, Nausea. denies: Abdominal pain Genitourinary: No symptoms reported Female Genitourinary: No symptoms reported Musculoskeletal: No symptoms reported Skin: No symptoms reported Hematologic/Lymphatic: No symptoms reported Neurological/Psychological: No symptoms reported -: Yes All other systems reviewed and negative Physical Exam - Vital signs Vitals: Resp Pulse Ox 12 100 12/16/18 21:00 12/16/18 21:00 Interpretation: Hypotensive - General General appearance: Appears well, Alert - HEENT Head: Normocephalic, Atraumatic Eyes: Normal Pupils: PERRL Mucous membranes: Dry - Respiratory Respiratory status: No respiratory distress Chest status: Nontender Breath sounds: Normal Chest palpation: Normal - Cardiovascular Rhythm: Regular Heart sounds: Normal auscultation Murmur: No - Abdominal Inspection: Normal Distension: No distension Bowel sounds: Normal Tenderness: Nontender Organomegaly: No organomegaly - Back Back: Normal, Nontender - Extremities General upper extremity: Normal inspection, Nontender, Normal color, Normal ROM, Normal temperature General lower extremity: Normal inspection, Nontender, Normal color, Normal ROM, Normal temperature, Normal weight bearing. No: Chris's sign - Neurological Neuro grossly intact: Yes Cognition: Normal Orientation: AAOx4 Sammi Coma Scale Eye Opening: Spontaneous Sammi Coma Scale Verbal: Oriented [place] Coma Scale Motor: Obeys Commands Sammi Coma Scale Total: 15 Speech: Normal Motor strength normal: LUE, RUE, LLE, RLE Sensory: Normal - Psychological Associated symptoms: Normal affect, Normal mood - Skin Skin Temperature: Warm Skin Moisture: Dry Skin Color: Normal Course - Re-evaluation Re-evalutation: 12/17/18 Patient is a 38-year-old female who gave plasma today. Comes in with hypotension. Given fluids prior to arrival. Given more fluids here and is feeling better. No further nausea after Zofran and Reglan. Taking p.o. Would like to be discharged home. Stable for discharge. No evidence for infection. Likely dehydration after plasma donation. Return if any further concerns. Understands agrees with plan. Stable for discharge - Vital Signs Vital signs: Temp Pulse Resp BP Pulse Ox 98.3 F 66 20 103/59 L 100 12/16/18 23:15 12/16/18 23:15 12/16/18 23:15 12/16/18 23:15 12/16/18 23:15 - Laboratory Result Diagrams: 12/16/18 20:49 12/16/18 20:49 Laboratory results interpreted by me: 12/16/18 12/16/18 20:49 20:49 WBC 15.0 H Hgb 11.8 L Hct 34.8 L RDW 14.4 H Lymph % (Auto) 10.8 L Absolute Neuts (auto) 12.4 H Seg Neutrophils % 82.8 H Chloride 108 H AST 12 L Total Protein 5.7 L Albumin 3.1 L Discharge - Discharge Clinical Impression: Dehydration Condition: Stable Disposition: HOME, SELF-CARE Instructions: Dehydration ([facility]) Forms: Return to Work Referrals: CASTRO,BRI C, MD [Primary Care Provider] - Follow up as needed I personally performed the services described in the documentation, reviewed and edited the documentation which was dictated to the scribe in my presence, and it accurately records my words and actions.
== END 2018-12-16 23:15 | disposition home or self-care (01) ==
LOC: ER 20:45
DX: E86.0 Dehydration (principal); R42 Dizziness and giddiness; R11.0 Nausea
CPT/HCPCS: 36415; 85025; 80053; J2765; J7030; 96361; 96374; 99284

== ENCOUNTER 2018-12-19 21:14 | Emergency (ER) | payer MEDICAID ==
[2018-12-19] MEDS ORDERED: ONDANSETRON HCL INJ/PF 4 MG/2 ML SDV IV ONE (21:42)
[2018-12-19] MEDS ORDERED: IBUPROFEN 600 MG TABLET PO ONE (21:42)
--- NOTE | 2018-12-19 21:44 | ER Document Report ---
ED Medical Screen (RME) - General Chief Complaint: Dizziness Stated Complaint: LOW BLOOD PRESSURE,DIZZINESS Time Seen by Provider: 12/19/18 21:35 Primary Care Provider: BRI CASTRO MD [Primary Care Provider] - Follow up as needed Notes: 38-year-old female presents the emergency department for near syncopal episode that occurred 2 hours after donating plasma today. Patient states she got extremely dizzy, started having spotty vision, was nauseated, became weak, and had nausea and vomiting. Her symptoms are still present. She donated plasma 3 days ago and had similar symptoms and was seen here for the same issue. She is currently on her menstrual period. 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 A comprehensive ED assessment and evaluation of the patient, analysis of test results and completion of medical decision making process will be conducted by an additional ED providers. TRAVEL OUTSIDE OF THE [place] IN LAST 30 DAYS: No - Related Data Allergies/Adverse Reactions: No Known Allergies Allergy (Verified 12/19/18 21:33) Home Medications: Iron supplement Past Medical History - Social History Frequency of alcohol use: None - Past Medical History Cardiac Medical History: Denies: Hx Coronary Artery Disease, Hx Heart Attack, Hx Hypertension Pulmonary Medical History: Denies: Hx Asthma, Hx Bronchitis, Hx COPD, Hx Pneumonia Neurological Medical History: Denies: Hx Cerebrovascular Accident, Hx Seizures Renal/ Medical History: Denies: Hx Peritoneal Dialysis Musculoskeltal Medical History: Denies Hx Arthritis Past Surgical History: Reports: Hx Hysterectomy - Immunizations Hx Diphtheria, Pertussis, Tetanus Vaccination: Yes Physical Exam - Vital signs Vitals: Temp Pulse Resp BP Pulse Ox 97.8 F 90 16 105/72 99 12/19/18 21:23 12/19/18 21:23 12/19/18 21:23 12/19/18 21:23 12/19/18 21:23 Course - Vital Signs Vital signs: Temp Pulse Resp BP Pulse Ox 97.8 F 90 16 105/72 99 12/19/18 21:23 12/19/18 21:23 12/19/18 21:23 12/19/18 21:23 12/19/18 21:23 Doctor's Discharge - Discharge Referrals: BRI CASTRO MD [Primary Care Provider] - Follow up as needed
--- NOTE | 2018-12-19 22:42 | ER Document Report ---
ED General - General Chief Complaint: Dizziness Stated Complaint: LOW BLOOD PRESSURE,DIZZINESS Time Seen by Provider: 12/19/18 21:35 Primary Care Provider: BRI CASTRO MD [Primary Care Provider] - Follow up as needed TRAVEL OUTSIDE OF THE [place] IN LAST 30 DAYS: No - HPI Notes: 38-year-old female presents with weakness and dizziness after donating plasma. Had a similar episode several days ago when she donated plasma. Happened approximate 2 hours after donating, worse with standing or moving. No sensation of motion. No fever, chills or sweats. Currently menstruating is somewhat heavier than normal. No significant abdominal pain. No fever, chills or sweats. No back pain. No other modifying factors, no other associated symptoms, no other provocative or palliative factors. - Related Data Allergies/Adverse Reactions: No Known Allergies Allergy (Verified 12/19/18 21:33) Home Medications: Iron supplement Past Medical History - Social History Smoking Status: Never Smoker Frequency of alcohol use: None Family History: Reviewed & Not Pertinent Patient has suicidal ideation: No Patient has homicidal ideation: No - Medical History Notes: No pertinent history - Past Medical History Cardiac Medical History: Denies: Hx Coronary Artery Disease, Hx Heart Attack, Hx Hypertension Pulmonary Medical History: Denies: Hx Asthma, Hx Bronchitis, Hx COPD, Hx Pneumonia Neurological Medical History: Denies: Hx Cerebrovascular Accident, Hx Seizures Renal/ Medical History: Denies: Hx Peritoneal Dialysis Musculoskeletal Medical History: Denies Hx Arthritis Past Surgical History: Reports: Hx Hysterectomy - Immunizations Hx Diphtheria, Pertussis, Tetanus Vaccination: Yes Review of Systems - Review of Systems Notes: Review of systems as in the history of present illness, otherwise negative x 10 systems. Physical Exam - Vital signs Vitals: Temp Pulse Resp BP Pulse Ox 97.8 F 90 16 105/72 99 12/19/18 21:23 12/19/18 21:23 12/19/18 21:23 12/19/18 21:23 12/19/18 21:23 - Notes Notes: General: Well developed . HEENT: Normocephalic, atraumatic. Pupils equal round reactive to light. No JVD. Chest: No trauma. Respiratory: Good air exchange, normal excursion. Cardiac: Regular rhythm. No murmurs or gallops. Abdomen: Soft, benign. Nondistended. Nontender. Back: No asymmetry or gross abnormality. Motor: Grossly normal power and tone. Neurologic: Alert, nonfocal. Cranial nerves II-12 are intact. Sensation intact. Vascular: Well perfused. Normal peripheral pulses. Skin: No petechiae or purpura. Course - Re-evaluation Re-evalutation: 12/19/18 22:42 Well-appearing female likely orthostatic hypotension and symptomology. Given her heavy menses, consider underlying anemia and will check CBC and hemoglobin. Chemistries evaluate underlying electrolytes and renal function, will hydrate, treat with antiemetics, serial exams and reassess. UPT to exclude . 12/20/18 00:47 Patient is done well throughout her ED course, serial observation shows no acute neurologic abnormality. Received IV fluids, antiemetics. Labs reviewed, no significant abnormalities were noted, urinalysis contaminated with menstrual blood, UPT negative. Patient advised to cease donating plasma, stay hydrated, outpatient follow-up. - Vital Signs Vital signs: Temp Pulse Resp BP Pulse Ox 97.8 F 90 24 H 108/63 100 12/19/18 21:23 12/19/18 21:23 12/20/18 00:30 12/20/18 00:30 12/20/18 00:30 - Laboratory Result Diagrams: 12/19/18 23:47 12/19/18 23:47 Laboratory results interpreted by me: 12/19/18 12/19/18 23:19 23:47 WBC 13.4 H RDW 14.2 H Plt Count 473 H Absolute Neuts (auto) 9.9 H Urine Protein 30 H Urine Blood LARGE H Ur Leukocyte Esterase TRACE H Discharge - Discharge Clinical Impression: Dizziness Disposition: HOME, SELF-CARE Instructions: Dizziness ([facility]) Referrals: BRI CASTRO MD [Primary Care Provider] - Follow up as needed
[2018-12-19] MEDS: NORMAL SALINE 1000 ML 1,000 ML IV PRN ×2 (23:29→23:43)
[2018-12-19 23:41] LABS: APPEARANCE,URINE CLEAR; BILIRUBIN,URINE NEGATIVE (NEGATIVE); COLOR,URINE PINK; GLUCOSE, URINE NEGATIVE (NEGATIVE); KETONES,URINE NEGATIVE (NEGATIVE); LEUKOCYTE ESTERASE,URINE TRACE (NEGATIVE); NITRITE,URINE NEGATIVE (NEGATIVE); PROTEIN,URINE 30 mg/dL (NEGATIVE); URINE SPECIFIC GRAVITY 1.004; UROBILINOGEN,URINE NEGATIVE mg/dL (<2.0)
[2018-12-20 00:20] LABS: ALBUMIN 3.5 g/dL (3.5-5.0); ALKALINE PHOSPHATASE 77 U/L (38-126); ANION GAP 8 (5-19); ASPARTATE AMINO TRANSFERASE 14 U/L (14-36); BILIRUBIN,DIRECT 0.1 mg/dL (0.0-0.4); BILIRUBIN,TOTAL 0.2 mg/dL (0.2-1.3); BLOOD UREA NITROGEN 9 mg/dL (7-20); CALCIUM 8.6 mg/dL (8.4-10.2); CARBON DIOXIDE 23 mmol/L (22-30); CHLORIDE 107 mmol/L (98-107); GLUCOSE 94 mg/dL (75-110); POTASSIUM 4.1 mmol/L (3.6-5.0); TOTAL PROTEIN 6.3 g/dL (6.3-8.2)
[2018-12-20 00:23] LABS: ABSOLUTE LYMPHOCYTES (AUTO) 2.7 10^3/uL (0.5-4.7); ABSOLUTE MONOCYTES (AUTO) 0.7 10^3/uL (0.1-1.4); ABSOLUTE NEUT (AUTO) 9.9 10^3/uL (1.7-8.2); BASOPHILS % (AUTO) 0.3 % (0-2); EOSINOPHILS % (AUTO) 0.3 % (0-6); HEMATOCRIT 37.7 % (36.0-47.0); HEMOGLOBIN 12.6 g/dL (12.0-15.5); LYMPHOCYTES % (AUTO) 20.4 % (13-45); MEAN CORPUSCULAR HEMOGLOBIN 29.2 pg (27.0-33.4); MEAN CORPUSCULAR HGB CONC 33.4 g/dL (32.0-36.0); MEAN CORPUSCULAR VOLUME 87 fl (80-97); MONOCYTES % (AUTO) 4.9 % (3-13); PLATELET COUNT 473 10^3/uL (150-450); RED BLOOD COUNT 4.32 10^6/uL (3.72-5.28); RED CELL DISTRIBUTION WIDTH 14.2 % (11.5-14.0); SEGMENTED NEUTROPHILS % (AUTO) 74.1 % (42-78); TOTAL CELLS COUNTED % (AUTO) 100 %; WHITE BLOOD COUNT 13.4 10^3/uL (4.0-10.5)
[2018-12-20 01:04] VITALS: BP 112/66
== END 2018-12-20 01:17 | disposition home or self-care (01) ==
LOC: ER 21:14
DX: R42 Dizziness and giddiness (principal); R53.1 Weakness
CPT/HCPCS: 99284; 96361; 96374; 36415; 85025; 81025; 80053; 81001; J3490; J2405; J7030

== ENCOUNTER 2019-02-15 16:51 | Emergency (ER) | payer MEDICAID ==
[2019-02-15] MEDS ORDERED: ONDANSETRON 4 MG TAB.RAPDIS PO ONE (17:25)
[2019-02-15] MEDS ORDERED: PSEUDOEPHEDRINE HCL 30 MG TABLET PO ONE (17:25)
[2019-02-15] MEDS ORDERED: IBUPROFEN 800 MG TABLET PO ONE (17:25)
--- NOTE | 2019-02-15 17:26 | ER Document Report ---
HPI - HPI Time Seen by Provider: 02/15/19 17:11 Onset/Duration: Persistent Quality of pain: Achy Pain Level: 4 Context: Patient presents with sore throat and cough for the past month. Patient states she has had congestion as well. Patient reports vomiting yesterday although none today. Patient denies any abdominal tenderness or diarrhea. Patient denies any fever. Patient is here with other family members who have similar upper respiratory symptoms. Associated Symptoms: Nonproductive cough, Nausea, Vomiting, Rhinnorhea, Sore throat. denies: Fever Exacerbated by: Denies Relieved by: Denies Similar symptoms previously: No Recently seen / treated by doctor: No - ROS ROS below otherwise negative: Yes Systems Reviewed and Negative: Yes All other systems reviewed and negative - CONSTITUTIONAL Constitutional: REPORTS: Chills - EENT EENT: REPORTS: Sore Throat, Nasal Drainage-Clear, Congestion - NEURO Neurology: DENIES: Headache - RESPIRATORY Respiratory: REPORTS: Coughing - GASTROINTESTINAL Gastrointestinal: REPORTS: Nausea, Patient vomiting. DENIES: Abdominal Pain, Diarrhea - URINARY Urinary: DENIES: Dysuria, Urgency, Frequency - REPRODUCTIVE Reproductive: DENIES: : - MUSCULOSKELETAL Musculoskeletal: DENIES: Back Pain - DERM Skin Color: Normal Skin Problems: None Past Medical History - General Information source: Patient - Social History Smoking Status: Never Smoker Chew tobacco use (# tins/day): No Frequency of alcohol use: Occasional Occupation: [employer] Lives with: Family Family History: Reviewed & Not Pertinent Patient has suicidal ideation: No Patient has homicidal ideation: No - Medical History Medical History: Negative Neurological Medical History: Denies: Hx Cerebrovascular Accident, Hx Seizures Renal/ Medical History: Denies: Hx Peritoneal Dialysis Musculoskeletal Medical History: Denies Hx Arthritis Surgical Hx: Negative Past Surgical History: Reports: Hx Hysterectomy - Immunizations Hx Diphtheria, Pertussis, Tetanus Vaccination: Yes Vertical Provider Document - CONSTITUTIONAL Agree With Documented VS: Yes Exam Limitations: No Limitations General Appearance: WD/WN, No Apparent Distress - INFECTION CONTROL TRAVEL OUTSIDE OF THE [place] IN LAST 30 DAYS: No - HEENT HEENT: Atraumatic, Normocephalic, Pharyngeal Tenderness. negative: Pharyngeal Exudate, Pharyngeal Erythema, Tympanic Membrane Red, Tympanic Membrane Bulging Notes: clear rhinorrhea - NECK Neck: Normal Inspection, Supple. negative: Lymphadenopathy-Left, Lymphadenopathy-Right - RESPIRATORY Respiratory: Breath Sounds Normal, No Respiratory Distress, Chest Non-Tender - CARDIOVASCULAR Cardiovascular: Regular Rate, Regular Rhythm, No Murmur - GI/ABDOMEN Gastrointestinal: Abdomen Soft, Abdomen Non-Tender - BACK Back: Normal Inspection - MUSCULOSKELETAL/EXTREMETIES Musculoskeletal/Extremeties: MAEW - NEURO Level of Consciousness: Awake, Alert, Appropriate Motor/Sensory: No Motor Deficit - DERM Integumentary: Warm, Dry, No Rash Course - Re-evaluation Re-evalutation: 02/15/19 18:34 Patient presents with sore throat cough symptoms for the past month. Patient lives with multiple family members with similar upper respiratory symptoms. Does report purulent nasal drainage. Will treat for sinusitis at this time given duration of patient's symptoms. Good return precautions discussed at this time. - Vital Signs Vital signs: Temp Pulse Resp BP Pulse Ox 98.0 F 92 20 98/56 L 98 02/15/19 17:00 02/15/19 17:00 02/15/19 17:00 02/15/19 17:00 02/15/19 17:00 - Laboratory Laboratory results interpreted by me: 02/15/19 18:34 Labs- Entire Visit 02/15/19 17:29 Group A Strep Rapid NEGATIVE - Diagnostic Test Radiology reviewed: Image reviewed, Reports reviewed Discharge - Discharge Clinical Impression: Nausea, Sore throat Sinusitis Qualifiers: Sinusitis location: unspecified location Chronicity: acute Recurrence: not specified as recurrent Qualified Code(s): J01.90 - Acute sinusitis, unspecified Condition: Stable Disposition: HOME, SELF-CARE Instructions: Augmentin ([facility]), Nausea or Vomiting, Nonspecific ([facility]), Sinusitis ([facility]), Sore Throat ([facility]) Additional Instructions: Return immediately for any new or worsening symptoms Followup with your primary care provider, call tomorrow to make a followup appointment Prescriptions: Amox Tr/Potassium Clavulanate [Augmentin 875-125 Tablet] 1 tab PO BID 10 Days tablet Fluticasone Propionate [Flonase Nasal [place] 50 Mcg/[place] 16 gm] 2 spray NASL DAILY #1 bottle Guaifenesin/Pseudoephedrne HCl [Mucinex D ER 1,200-120 mg Tab] 1 each PO Q12 PRN #12 tab.er.12h PRN Reason: Forms: Return to Work Referrals: BRI CASTRO MD [Primary Care Provider] - Follow up as needed
--- NOTE | 2019-02-15 18:24 | RADIOLOGY REPORT (SQ) ---
EXAM DESCRIPTION: CHEST 2 VIEWS COMPLETED DATE/TIME: 02/15/2019 5:55 pm REASON FOR STUDY: cough COMPARISON: None. EXAM PARAMETERS: NUMBER OF VIEWS: two views TECHNIQUE: Digital Frontal and Lateral radiographic views of the chest acquired. RADIATION DOSE: NA LIMITATIONS: none FINDINGS: LUNGS AND PLEURA: No opacities, masses or pneumothorax. No pleural effusion. MEDIASTINUM AND HILAR STRUCTURES: No masses or contour abnormalities. HEART AND VASCULAR STRUCTURES: Heart normal size. No evidence for failure. BONES: No acute findings. HARDWARE: None in the chest. OTHER: No other significant finding. IMPRESSION: NO ACUTE RADIOGRAPHIC FINDING IN THE CHEST. TECHNICAL DOCUMENTATION: JOB ID: [id number] [place]-[id number] 2010 [employer]- All Rights Reserved Reading location - IP/workstation name: [employer]
[2019-02-15 18:58] VITALS: BP 109/67
== END 2019-02-15 18:58 | disposition home or self-care (01) ==
LOC: ER 16:51
DX: J01.90 Acute sinusitis, unspecified (principal); J02.9 Acute pharyngitis, unspecified; R11.2 Nausea with vomiting, unspecified; R05 Cough; R09.81 Nasal congestion; J34.89 Other specified disorders of nose and nasal sinuses; R09.89 Other specified symptoms and signs involving the circulatory and respiratory systems
CPT/HCPCS: 99283; 87070; 87880; 71046; J3490; S0119

== ENCOUNTER 2019-04-22 20:22 | Emergency (ER) | payer OTHER, MEDICAID ==
--- NOTE | 2019-04-23 02:21 | RADIOLOGY REPORT (SQ) ---
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 COMPARISON: No relevant prior studies available. FINDINGS: BONES/JOINTS: No acute fracture. No dislocation. SOFT TISSUES: There is a small soft tissue defect at the distal aspect of the 3rd digit. No obvious radiopaque foreign body. IMPRESSION: There is a small soft tissue defect at the distal aspect of the 3rd digit. No obvious radiopaque foreign body.
--- NOTE | 2019-04-23 06:27 | ER Document Report ---
HPI - HPI Time Seen by Provider: 04/23/19 06:23 Pain Level: 5 Notes: Otherwise healthy 38-year-old female with complaints of laceration to her right middle finger. 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 Patient reports she is unsure when the last tetanus was. No change in range of motion. She denies any pain. - CONSTITUTIONAL Constitutional: DENIES: Fever, Chills - REPRODUCTIVE Reproductive: DENIES: : Past Medical History - General Information source: Patient - Social History Smoking Status: Never Smoker Family History: Reviewed & Not Pertinent Patient has suicidal ideation: No Patient has homicidal ideation: No - Medical History Medical History: Negative - Past Medical History Cardiac Medical History: Denies: Hx Coronary Artery Disease, Hx Heart Attack, Hx Hypertension Pulmonary Medical History: Denies: Hx Asthma, Hx Bronchitis, Hx COPD, Hx Pneumonia Neurological Medical History: Denies: Hx Cerebrovascular Accident, Hx Seizures Renal/ Medical History: Denies: Hx Peritoneal Dialysis Musculoskeletal Medical History: Denies Hx Arthritis Past Surgical History: Reports: Hx Hysterectomy - Immunizations Hx Diphtheria, Pertussis, Tetanus Vaccination: Yes Vertical Provider Document - CONSTITUTIONAL Notes: PHYSICAL EXAMINATION: GENERAL: Well-appearing, well-nourished and in no acute distress. HEAD: Atraumatic, normocephalic. EYES: Pupils equal round extraocular movements intact, conjunctiva are normal. ENT: Nares patent NECK: Normal range of motion LUNGS: No respiratory distress Musculoskeletal: Normal range of motion NEUROLOGICAL: Normal speech, normal gait. PSYCH: Normal mood, normal affect. SKIN: 0.5 cm laceration noted to tip of right third digit, this has already closed, no active bleeding noted. No surrounding erythema. - INFECTION CONTROL TRAVEL OUTSIDE OF THE [place] IN LAST 30 DAYS: No Course - Re-evaluation Re-evalutation: Patient has had laceration for greater than 48 hours, no indication for primary closure. Wound is already closing itself. It appears that it is probably very superficial and is less than 1 cm in length. There is no surrounding erythema. Will start patient on 3-day course of antibiotics since she has not seen a provider for this and it has been greater than 48 hours. - Vital Signs Vital signs: Temp Pulse Resp BP Pulse Ox 97.9 F 79 20 122/77 98 04/23/19 01:56 04/23/19 01:56 04/23/19 01:56 04/23/19 01:56 04/23/19 01:56 Discharge - Discharge Clinical Impression: Laceration Condition: Stable Disposition: HOME, SELF-CARE Additional Instructions: Your tetanus was updated today. We are unable to suture your wound as you have waited 2 days to come and see us. Please keep clean and dry. Take the 3-day course of antibiotics to prevent infection. Wear gloves while working. Prescriptions: Cephalexin [Keflex] 500 mg PO BID #6 capsule Forms: Return to Work Referrals: BRI CASTRO MD [Primary Care Provider] - Follow up as needed
[2019-04-23] MEDS ORDERED: DIPH/PERTUSS(ACELL)/TETANUS VAC/PF 0.5 ML SYR (>=10YO) IM ONE (06:28)
[2019-04-23 07:32] VITALS: BP 95/69
== END 2019-04-23 07:35 | disposition home or self-care (01) ==
LOC: ER 20:22
DX: S61.212A Laceration without foreign body of right middle finger without damage to nail, initial encounter (principal); W45.8XXA Other foreign body or object entering through skin, initial encounter
CPT/HCPCS: 90471; 90715; 99283